=== PATIENT | male | born 1960 | race Caucasian/White ===

== ENCOUNTER 2018-07-21 08:47 | Day surgery (SDC) | payer MEDICARE, OTHER ==
[~2018-07-21] VITALS: Ht 193 cm; Wt 112.8 kg
[~2018-07-21 08:47] MED LIST: AMOCLA875 PO; CRUTCH USE; ESCI10; ESCI20 PO; ESCI5 PO; HYDACE5 PO; HYDACE5325 PO; IRBE150; LANS15EC PO; LANS30EC; LISI5 PO; LORA1 PO; MAGIC MOUTHWASH SS; NAPR500 PO; PREVA; ROSU10TA PO; TRAZ100; [UNRECOGNIZED DRUG - OTHER]
[2018-07-21] MEDS ORDERED: CITA20 PO (09:34)
[2018-07-21] MEDS ORDERED: PIOG30 (09:35)
[2018-07-21] MEDS ORDERED: ATOR40TA (09:35)
[2018-07-21] MEDS ORDERED: GLIM4 (09:35)
--- NOTE | 2018-07-21 09:45 | NUR ---
07/21/18 0945 Star Cortes 1ST AND 2ND IV ATTEMPTS IN LH UNSUCCESSFUL, PARMINDER 3RD IV ATTEMPT IN LFA UNSUCCESSFUL, IVONNE 4TH IV ATTEMPT SUCCESSFUL IN LAC, IVONNE
== END 2018-07-21 11:00 | disposition home or self-care (01) ==
LOC: ORSCSDS 08:47
PROVIDERS: Student in an Organized Health Care Education/Training Program
PROC: 0DB68ZX Excision of Stomach, Via Natural or Artificial Opening Endoscopic, Diagnostic (ICD-10-PCS; principal; 2018-07-21 10:00)
PROC: 0DB98ZX Excision of Duodenum, Via Natural or Artificial Opening Endoscopic, Diagnostic (ICD-10-PCS; principal; 2018-07-21 10:00)
PROC: 0DB58ZX Excision of Esophagus, Via Natural or Artificial Opening Endoscopic, Diagnostic (ICD-10-PCS; principal; 2018-07-21 10:00)
DX: K21.9 Gastro-esophageal reflux disease without esophagitis (principal); K44.9 Diaphragmatic hernia without obstruction or gangrene; K29.80 Duodenitis without bleeding; R10.9 Unspecified abdominal pain; K29.70 Gastritis, unspecified, without bleeding; R12 Heartburn; I10 Essential (primary) hypertension; E11.9 Type 2 diabetes mellitus without complications; F32.9 Major depressive disorder, single episode, unspecified; E66.9 Obesity, unspecified; Z68.30 Body mass index [BMI] 30.0-30.9, adult; Z79.899 Other long term (current) drug therapy
CPT/HCPCS: 82947; 88305; 88342

== ENCOUNTER 2018-11-10 11:57 | Day surgery (SDC) | payer MEDICARE, OTHER ==
[~2018-11-10] VITALS: Ht 193 cm; Wt 110.4 kg
[~2018-11-10 11:57] MED LIST changes: +ATOR40TA; +CITA20 PO; +GLIM4; +PIOG30
== END 2018-11-10 14:35 | disposition home or self-care (01) ==
LOC: ORSCSDS 11:57
PROVIDERS: Surgery
PROC: 0DBM8ZX Excision of Descending Colon, Via Natural or Artificial Opening Endoscopic, Diagnostic (ICD-10-PCS; principal; 2018-11-10 13:30)
PROC: 0DBP8ZX Excision of Rectum, Via Natural or Artificial Opening Endoscopic, Diagnostic (ICD-10-PCS; principal; 2018-11-10 13:30)
DX: Z12.11 Encounter for screening for malignant neoplasm of colon (principal); D12.4 Benign neoplasm of descending colon; K62.1 Rectal polyp; K57.30 Diverticulosis of large intestine without perforation or abscess without bleeding; Z86.010 Personal history of colon polyps; I10 Essential (primary) hypertension; K21.9 Gastro-esophageal reflux disease without esophagitis; Z86.73 Personal history of transient ischemic attack (TIA), and cerebral infarction without residual deficits; F32.9 Major depressive disorder, single episode, unspecified; Z79.899 Other long term (current) drug therapy
CPT/HCPCS: 82947; 88305; J2704; J7120

== ENCOUNTER 2019-07-25 11:56 | Emergency (ER) | payer MEDICARE ==
[~2019-07-25] VITALS: Ht 193 cm; Wt 111.1 kg
[2019-07-25 13:12] LABS: BASOPHILS ABSOLUTE AUTO 0.04 K/mm3 (0.00-0.23); BASOPHILS PERCENT AUTO 1 % (0-2); EOSINOPHILS ABSOLUTE AUTO 0.18 K/mm3 (0.00-0.68); EOSINOPHILS PERCENT AUTO 3 % (0-6); Hematocrit 45.6 % (37.0-53.0); Hemoglobin 15.7 g/dL (13.5-17.5); IMMATURE GRAN ABSOLUTE AUTO 0.02 K/mm3 (0.00-0.10); IMMATURE GRAN PERCENT AUTO 0 % (0-1); LYMPHOCYTES PERCENT AUTO 25 % (21-46); MONOCYTES ABSOLUTE AUTO 0.51 K/mm3 (0.16-1.47); MONOCYTES PERCENT AUTO 9 % (4-13); Mean Corpuscular HGB 31.2 pg (26.0-34.0); Mean Corpuscular HGB Conc 34.4 g/dL (31.5-36.5); Mean Corpuscular Volume 91 fL (80-100); Mean Platelet Volume 10.4 fL (9.1-12.4); NEUTROPHILS ABSOLUTE AUTO 3.73 K/mm3 (1.96-9.15); NEUTROPHILS PERCENT AUTO 62 % (41-73); Platelet Count 250 K/mm3 (150-400); RDW Coefficient Variation 13.3 % (11.7-14.2); RDW Standard Deviation 44.3 fL (35.1-46.3); Red Blood Cell Count 5.04 M/mm3 (4.30-5.90); White Blood Cell Count 5.98 K/mm3 (4.00-11.30)
[2019-07-25 13:26] LABS: Alanine Aminotransfer (ALT/SGP 38 U/L (12-78); Albumin, Blood 4.1 g/dL (3.4-5.0); Albumin/Globulin Ratio 1.3 (0.8-1.8); Alk Phos 65 U/L (50-136); Anion Gap 5 mmol/L (6-16); Aspartate Aminotrans (AST/SGOT 17 U/L (12-37); Bilirubin, Total 0.6 mg/dL (0.1-1.0); Blood Urea Nitrogen 10 mg/dL (8-24); Bun/Creatinine Ratio 13.3 (12.0-20.0); CO2, Blood 24 mmol/L (21-32); Calcium, Blood 8.6 mg/dL (8.5-10.1); Chloride, Blood 109 mmol/L (98-108); Creatinine, Blood 0.75 mg/dL (0.60-1.20); Globulin, Blood 3.1 g/dL (2.2-4.0); Glomerular Filtration Rate >60 (60-); Glucose, Blood 147 mg/dL (70-99); Potassium, Blood 3.8 mmol/L (3.5-5.5); Sodium, Blood 138 mmol/L (136-145); Total Protein, Blood 7.2 g/dL (6.4-8.2)
== END 2019-07-25 14:39 | disposition home or self-care (01) ==
LOC: ER 11:56
PROVIDERS: Physician Assistant
DX: M25.511 Pain in right shoulder (principal); I10 Essential (primary) hypertension; E78.5 Hyperlipidemia, unspecified; E11.9 Type 2 diabetes mellitus without complications; Z88.2 Allergy status to sulfonamides; Z79.899 Other long term (current) drug therapy; Z86.73 Personal history of transient ischemic attack (TIA), and cerebral infarction without residual deficits
CPT/HCPCS: 36415; 73030; 76705; 80053; 83690; 85025; 99284-25

== ENCOUNTER → 2019-08-07 | Outpatient (CLI) | payer MEDICARE | END | disposition home or self-care (01) | LOC: LAB EV 14:41 → LAB SHORT 14:41 | DX: M25.521 Pain in right elbow (principal) | CPT/HCPCS: 84550 ==

== ENCOUNTER 2023-05-30 18:00 | Emergency (ER) | payer MEDICARE ==
[~2023-05-30] VITALS: Ht 193 cm; Wt 108.9 kg
[2023-05-30 18:41] LABS: BASOPHILS ABSOLUTE AUTO 0.05 K/mm3 (0.00-0.23); BASOPHILS PERCENT AUTO 1 % (0-2); EOSINOPHILS ABSOLUTE AUTO 0.12 K/mm3 (0.00-0.68); EOSINOPHILS PERCENT AUTO 2 % (0-6); Hematocrit 44.8 % (37.0-53.0); Hemoglobin 16.2 g/dL (13.5-17.5); IMMATURE GRAN ABSOLUTE AUTO 0.01 K/mm3 (0.00-0.10); IMMATURE GRAN PERCENT AUTO 0 % (0-1); LYMPHOCYTES ABSOLUTE AUTO 2.06 K/mm3 (0.84-5.20); LYMPHOCYTES PERCENT AUTO 27 % (21-46); MONOCYTES ABSOLUTE AUTO 0.66 K/mm3 (0.16-1.47); MONOCYTES PERCENT AUTO 9 % (4-13); Mean Corpuscular HGB 31.9 pg (26.0-34.0); Mean Corpuscular HGB Conc 36.2 g/dL (31.5-36.5); Mean Corpuscular Volume 88 fL (80-100); Mean Platelet Volume 9.7 fL (9.1-12.4); NEUTROPHILS ABSOLUTE AUTO 4.75 K/mm3 (1.96-9.15); NEUTROPHILS PERCENT AUTO 62 % (41-73); Platelet Count 248 K/mm3 (150-400); RDW Coefficient Variation 12.7 % (11.7-14.2); RDW Standard Deviation 41.2 fL (35.1-46.3); Red Blood Cell Count 5.08 M/mm3 (4.30-5.90); White Blood Cell Count 7.65 K/mm3 (4.00-11.30)
[2023-05-30 19:00] LABS: Albumin/Globulin Ratio 1.1 (0.8-1.8); Bilirubin, Total 0.5 mg/dL (0.1-1.0); Bun/Creatinine Ratio 19.1 (12.0-20.0); Calcium, Blood 8.8 mg/dL (8.5-10.1); Creatinine, Blood 0.84 mg/dL (0.60-1.20); Globulin, Blood 3.5 g/dL (2.2-4.0); Potassium, Blood 3.8 mmol/L (3.5-5.5); Total Protein, Blood 7.5 g/dL (6.4-8.2)
[2023-05-30 19:47] LABS: Source, Urine Clean Catch
[2023-05-30 19:50] LABS: Appearance, Urine Clear (Clear); Bilirubin, Urine Neg (Neg); Blood, Urine Neg (Neg); Color, Urine Yellow (P-Yellow); Glucose Qualitative, Urine 1+ (Neg); Ketones, Urine Neg (Neg); Leukocyte Esterase, Urine Neg (Neg); Nitrite, Urine Neg (Neg); Protein, Urine Neg (Neg); Urobilinogen, Urine NORM (Normal)
[2023-05-30 20:58] VITALS: BP 147/62
== END 2023-05-30 21:22 | disposition home or self-care (01) ==
LOC: ER 18:00
PROVIDERS: Emergency Medicine; Physician Assistant
DX: S29.011A Strain of muscle and tendon of front wall of thorax, initial encounter (principal); I10 Essential (primary) hypertension; E11.9 Type 2 diabetes mellitus without complications; E78.5 Hyperlipidemia, unspecified; X58.XXXA Exposure to other specified factors, initial encounter; Z88.2 Allergy status to sulfonamides; Z79.899 Other long term (current) drug therapy; Z79.84 Long term (current) use of oral hypoglycemic drugs
CPT/HCPCS: 74177; 80053; 81003; 83690; 85025; 96361; 96374; 99284-25; A9270; J1885; J7030; Q9967

== ENCOUNTER → 2023-08-22 | Outpatient (CLI) | payer MEDICARE | END | disposition home or self-care (01) | LOC: LAB 14:01 → LAB SHORT 14:01 | DX: K04.7 Periapical abscess without sinus (principal) | CPT/HCPCS: 87070; 87075; 87205 ==

== ENCOUNTER 2024-01-08 03:36 | Inpatient (IN) | payer MEDICARE ==
[~2024-01-08] VITALS: Ht 193 cm; Wt 106.6 kg
[~2024-01-08 03:36] MED LIST changes: -ATOR40TA; +ATOR40TA PO; -GLIM4; +GLIM4 PO; -PIOG30; +PIOG30 PO
[2024-01-08] MEDS ORDERED: Diphth,Pertuss(Acell),Tet Vac 0.5 ML VIAL IM ONE ×2 (04:15→06:45)
[2024-01-08] MEDS ORDERED: Bacitracin Zinc Oint 1GRAM UD Packet TOP ONE (04:15)
[2024-01-08 05:28] LABS: BASOPHILS ABSOLUTE AUTO 0.02 K/mm3 (0.00-0.23); BASOPHILS PERCENT AUTO 0 % (0-2); EOSINOPHILS PERCENT AUTO 0 % (0-6); Hemoglobin 14.3 g/dL (13.5-17.5); IMMATURE GRAN ABSOLUTE AUTO 0.06 K/mm3 (0.00-0.10); IMMATURE GRAN PERCENT AUTO 0 % (0-1); LYMPHOCYTES PERCENT AUTO 5 % (21-46); MONOCYTES ABSOLUTE AUTO 0.69 K/mm3 (0.16-1.47); MONOCYTES PERCENT AUTO 5 % (4-13); Mean Corpuscular HGB 31.4 pg (26.0-34.0); Mean Corpuscular HGB Conc 34.9 g/dL (31.5-36.5); Mean Corpuscular Volume 90 fL (80-100); Mean Platelet Volume 9.9 fL (9.1-12.4); NEUTROPHILS ABSOLUTE AUTO 12.39 K/mm3 (1.96-9.15); NEUTROPHILS PERCENT AUTO 89 % (41-73); Platelet Count 250 K/mm3 (150-400); RDW Coefficient Variation 13.5 % (11.7-14.2); RDW Standard Deviation 44.2 fL (35.1-46.3); Red Blood Cell Count 4.56 M/mm3 (4.30-5.90); White Blood Cell Count 13.86 K/mm3 (4.00-11.30)
[2024-01-08 05:43] LABS: Albumin, Blood 4.1 g/dL (3.4-5.0); Albumin/Globulin Ratio 1.2 (0.8-1.8); Bilirubin, Total 0.5 mg/dL (0.1-1.0); Bun/Creatinine Ratio 15.2 (12.0-20.0); Calcium, Blood 8.2 mg/dL (8.5-10.1); Creatinine, Blood 0.66 mg/dL (0.60-1.20); Globulin, Blood 3.3 g/dL (2.2-4.0); Potassium, Blood 4.2 mmol/L (3.5-5.5); Total Protein, Blood 7.4 g/dL (6.4-8.2)
[2024-01-08] MEDS ORDERED: Acetaminophen 325 MG TABLET PO PRN (05:55)
[2024-01-08] MEDS ORDERED: Ondansetron HCl 2 MG / ML 2ML Vial IV PRN (06:00)
[2024-01-08] MEDS ORDERED: ChlordiazePOXIDE 25 MG Cap PO PRN (06:00)
[2024-01-08] MEDS ORDERED: Ketorolac Tromethamine 15mg Vial IV PRN (06:05)
[2024-01-08] MEDS ORDERED: Lactated Ringer's 1,000 ML IV SCH (07:30)
[2024-01-08] MEDS ORDERED: HydrALAZINE HCl 20 MG / ML 1ML Vial IV PRN (08:00)
[2024-01-08 08:07] LABS: International Normalized Ratio 1.16; Prothrombin Time Results 12.3 Sec (9.7-11.5)
[2024-01-08 08:55] VITALS: BP 149/72
[2024-01-08] MEDS ORDERED: Thiamine HCl 100 MG in NS 50 ML IV SCH (09:00)
[2024-01-08] MEDS ORDERED: Folic Acid 1 MG in NS 50 ML IV SCH (09:00)
[2024-01-08] MEDS ORDERED: Insulin Regular 100 UNIT/ML 10ML Vial SC SCH (12:00)
[2024-01-08] MEDS ORDERED: OxyCODONE HCL 5 MG TAB PO PRN (12:25)
[2024-01-08 15:28] VITALS: BP 137/73
--- NOTE | 2024-01-08 17:01 | NUR ---
shift summary pt arrived from ER this morning, painful with transfer r leg shortned and swollen around hip. pain managed per emar, significantly improved with elevation on pillows. pt tolerating po well at this time. plan is for patient to have further imaging and possible surgery tomorrow. pt aware and agreeable to plan.
[2024-01-08 19:31] VITALS: BP 161/65
[2024-01-08] MEDS ORDERED: OMEP20ER PO (19:55)
[2024-01-08] MEDS ORDERED: Docusate Sodium 100 MG Cap PO SCH (21:00)
[2024-01-09] VITALS (15 sets, daily range): BP systolic 130–164; BP diastolic 65–93
[2024-01-09 04:16] LABS: BASOPHILS ABSOLUTE AUTO 0.02 K/mm3 (0.00-0.23); BASOPHILS PERCENT AUTO 0 % (0-2); EOSINOPHILS ABSOLUTE AUTO 0.07 K/mm3 (0.00-0.68); EOSINOPHILS PERCENT AUTO 1 % (0-6); Hemoglobin 12.5 g/dL (13.5-17.5); IMMATURE GRAN ABSOLUTE AUTO 0.01 K/mm3 (0.00-0.10); IMMATURE GRAN PERCENT AUTO 0 % (0-1); LYMPHOCYTES ABSOLUTE AUTO 1.54 K/mm3 (0.84-5.20); LYMPHOCYTES PERCENT AUTO 23 % (21-46); MONOCYTES ABSOLUTE AUTO 0.99 K/mm3 (0.16-1.47); MONOCYTES PERCENT AUTO 15 % (4-13); Mean Corpuscular HGB 31.9 pg (26.0-34.0); Mean Corpuscular HGB Conc 35.7 g/dL (31.5-36.5); Mean Corpuscular Volume 89 fL (80-100); Mean Platelet Volume 9.4 fL (9.1-12.4); NEUTROPHILS ABSOLUTE AUTO 4.21 K/mm3 (1.96-9.15); NEUTROPHILS PERCENT AUTO 62 % (41-73); Platelet Count 169 K/mm3 (150-400); RDW Coefficient Variation 13.4 % (11.7-14.2); Red Blood Cell Count 3.92 M/mm3 (4.30-5.90); White Blood Cell Count 6.84 K/mm3 (4.00-11.30)
--- NOTE | 2024-01-09 04:23 | NUR ---
SHIFT SUMMARY PT IS A/OX4, IND W/ URINAL IN ROOM. BEDREST. R LEG ELEVATED ON PILLOW. PT MEDICATED FOR PAIN W/ TOLERABLE RESULTS. VSS. IV FLUIDS RUNNING PER EMAR. USING CALL LIGHT APPROPRIATELY. PT HAS R SIDED WEAKNESS AT BASELINE. PEDAL PULSE PALPABLE IN R FOOT, CAP REFILL <3 SECS. CALL LIGHT IN REACH.
[2024-01-09 04:50] LABS: Albumin, Blood 3.3 g/dL (3.4-5.0); Albumin/Globulin Ratio 1.1 (0.8-1.8); Bilirubin, Total 1.1 mg/dL (0.1-1.0); Bun/Creatinine Ratio 15.5 (12.0-20.0); Calcium, Blood 8.1 mg/dL (8.5-10.1); Creatinine, Blood 0.77 mg/dL (0.60-1.20); Globulin, Blood 2.9 g/dL (2.2-4.0); Magnesium, Blood 2.2 mg/dL (1.6-2.4); Potassium, Blood 3.6 mmol/L (3.5-5.5); Thyroid Stimulating Hormone 1.6 uIU/mL (0.360-4.800); Total Protein, Blood 6.2 g/dL (6.4-8.2)
[2024-01-09] MEDS ORDERED: Lactated Ringer's 1,000 ML IV ONE (13:10)
--- NOTE | 2024-01-09 13:41 | NUR ---
PT ARRIVES TO PACU VIA BED FOR PREOP CARE. PLEASANT & JOKING. SURGICAL PACK COMPLETE. SURGICAL HAT/PAS SLEEVE TO LLE/BP CUFF IN PLACE. AFEBRILE/VSS. LR AT TKO INFUSING. NO COMPLAINTS.
[2024-01-09] MEDS ORDERED: Tranexamic Acid 100 ML IV SCH (13:50)
[2024-01-09] MEDS ORDERED: CeFAZolin Sodium 2,000 MG in NS 100 ML IV SCH ×2 (13:50→22:00)
[2024-01-09] MEDS ORDERED: Bupivacaine 0.5% HCl 5 MG/ML 30MLVIAL ONE (13:53)
[2024-01-09] MEDS ORDERED: propofoL 20 ML IV ONE (14:01)
[2024-01-09] MEDS ORDERED: FentaNYL Citrate 50 MCG/ML 2 ML Injection ONE (14:01)
[2024-01-09] MEDS ORDERED: Phenylephrine HCl 100 MCG/ML-NS 10MLSYR (1MG/10ML) ONE (14:02)
[2024-01-09] MEDS ORDERED: Dexamethasone Sod Phos 10 MG/ML 1ML VIAL ONE (14:02)
[2024-01-09] MEDS ORDERED: Sugammadex Sodium 200 MG/2ML SDV (100 MG/ML) ONE (14:02)
[2024-01-09] MEDS ORDERED: Rocuronium Bromide 10 MG/ML 5ML Injection IV ONE (14:02)
[2024-01-09] MEDS ORDERED: Ondansetron HCl 2 MG / ML 2ML Vial ONE (14:02)
--- NOTE | 2024-01-09 14:17 | NUR ---
PT TO OR 4 VIA BED IN STABLE CONDITION AT 1415.
[2024-01-09] MEDS ORDERED: Bisacodyl 10 MG Supp PR PRN (17:00)
[2024-01-09] MEDS ORDERED: NS 1,000 ML IV SCH (17:00)
[2024-01-09] MEDS ORDERED: Magnesium Hydroxide Conc 10 ML UDC PO PRN (17:00)
[2024-01-09] MEDS ORDERED: Calcium Carbonate 1,250 MG TABLET PO SCH (17:00)
--- NOTE | 2024-01-09 17:57 | NUR ---
SHIFT SUMMARY PT S/P R HIP GAMMA NAILING. AQUACEL DRESSING TO R HIP CDI. PT IS SLIGHTLY SLEEP POST SURGERY BUT A/O X4 AND RESPONSIVE. PT REPORTS SOME BACK AND KNEE PAIN. TREATED PER EMR. HE HAS R SIDE FLACCIDITY DUE TO A PREVIOUS CVA. HE IS A DAILY DRINKER BUT CIWA HAS BEEN NEGATIVE SO FAR. VSS.
[2024-01-09] MEDS ORDERED: Docusate Sodium 100 MG Cap PO SCH (21:00)
--- NOTE | 2024-01-10 04:19 | NUR ---
SHIFT SUMMARY PATIENT SLEPT WELL. DID NOT HAVE MUCH PAIN IN HIP TONIGHT. SCDS STARTED, HE DID NOT COMPLAIN.NO SIGNS OF ETOH WITHDRAWAL. CBG CHANGED TO AC/HS INSTEAD OF Q6 SINCE HE IS EATING.
[2024-01-10 04:41] LABS: BASOPHILS ABSOLUTE AUTO 0.01 K/mm3 (0.00-0.23); BASOPHILS PERCENT AUTO 0 % (0-2); EOSINOPHILS ABSOLUTE AUTO 0.02 K/mm3 (0.00-0.68); EOSINOPHILS PERCENT AUTO 0 % (0-6); Hematocrit 34.2 % (37.0-53.0); Hemoglobin 12.1 g/dL (13.5-17.5); IMMATURE GRAN ABSOLUTE AUTO 0.02 K/mm3 (0.00-0.10); IMMATURE GRAN PERCENT AUTO 0 % (0-1); LYMPHOCYTES ABSOLUTE AUTO 0.96 K/mm3 (0.84-5.20); LYMPHOCYTES PERCENT AUTO 11 % (21-46); MONOCYTES ABSOLUTE AUTO 1.11 K/mm3 (0.16-1.47); MONOCYTES PERCENT AUTO 13 % (4-13); Mean Corpuscular HGB Conc 35.4 g/dL (31.5-36.5); Mean Corpuscular Volume 91 fL (80-100); Mean Platelet Volume 9.7 fL (9.1-12.4); NEUTROPHILS ABSOLUTE AUTO 6.55 K/mm3 (1.96-9.15); NEUTROPHILS PERCENT AUTO 76 % (41-73); Platelet Count 192 K/mm3 (150-400); RDW Coefficient Variation 13.1 % (11.7-14.2); RDW Standard Deviation 43.2 fL (35.1-46.3); Red Blood Cell Count 3.78 M/mm3 (4.30-5.90); White Blood Cell Count 8.67 K/mm3 (4.00-11.30)
[2024-01-10 06:11] VITALS: BP 135/67
[2024-01-10 07:13] VITALS: BP 145/62
[2024-01-10] MEDS ORDERED: Insulin Regular 100 UNIT/ML 10ML Vial SC SCH (07:30)
[2024-01-10] MEDS ORDERED: NS 250 ML IV PRN (09:00)
[2024-01-10] MEDS ORDERED: Cholecalciferol 1000 Unit Tablet (=25MCG) PO SCH (09:00)
[2024-01-10] MEDS ORDERED: Enoxaparin 40 MG/0.4 ML SYR SC SCH (09:00)
[2024-01-10 14:08] VITALS: BP 125/64
[2024-01-10 19:10] VITALS: BP 131/65
--- NOTE | 2024-01-10 19:28 | NUR ---
SHIFT SUMMARY PT IS POD#1 FROM R HIP PINNING. PAIN MANAGED WITH OXY AND TYLENOL. PT IS A 2 PERSON ASSIST FOR TRANSFERS. PT TOLERATING PO. PT USES CALL LIGHT APPROPRIATELY. CIWA SCORE 0.
[2024-01-10] MEDS ORDERED: Atorvastatin 40 MG Tab PO SCH (21:00)
[2024-01-11] MEDS ORDERED: Omeprazole 20 MG CapCR PO SCH ×2 (03:01→06:00)
[2024-01-11 03:03] VITALS: BP 133/68
[2024-01-11 07:08] VITALS: BP 132/70
--- NOTE | 2024-01-11 07:22 | NUR ---
SUMMARY ASSUMED CARE OF PT THIS SHIFT.PT WITH NO DISTRESS NOTED.MED FOR PAIN THIS AM PER ANESTHESIA ATTENDING AND PT SLEEPING THIS AM.
[2024-01-11] MEDS ORDERED: Citalopram Hydrobromide 20 MG Tab PO SCH (09:00)
[2024-01-11] MEDS ORDERED: Lisinopril 5 MG Tab PO SCH (09:00)
[2024-01-11] MEDS ORDERED: Bupivacaine 0.5% HCl 5 MG/ML 30MLVIAL ONE (12:39)
[2024-01-11 13:51] VITALS: BP 116/64
--- NOTE | 2024-01-11 14:28 | NUR ---
REPORT ATTEMPTED TO CALL RAYNA () TO GIVE REPORT ON PT. CALLED AT APPROX 1350 TO GIVE REPORT, PLACED THIS RN ON HOLD FOR APPROX 15 MINS THEN HUNG-UP THE CALL. THIS RN THEN CALLED BACK AND WAS AGAIN PLACED ON HOLD, THIS TIME FOR APPROX 10 MINS BEFORE HANGING UP THE PHONE. HAS NOT CALLED BACK TO RECEIVE REPORT AT THIS TIME.
--- NOTE | 2024-01-11 14:40 | NUR ---
DISCHARGE SUMMARY POD 2 R GAMMA NAILING. A&O x4. VSS. TOLERATING ORALS. AQUACEL DRESSING C/D/I. IV REMOVED. VOIDING USING URINAL, NO BM TODAY. PT NWB ON RLE; AMB USING SHERIDAN WALKER c GB TO STAND/PIVOT c 2 PERSON MOD ASSIST. PT MEDICATED PER EMAR FOR PAIN, REPORTS TOLERABLE. D/C'd VIA TRANSPORT SERVICE VIA WHEELCHAIR. ALL PERSONAL BELONGINGS c PATIENT. NO STATED QUESTIONS UPON DISCHARGE.
--- NOTE | 2024-01-11 15:11 | NUR ---
REPORT RAYNA Waldron) CALLED TRANSFUSION AIDE TO RECEIVE REPORT @ 0340. REPORT GIVEN TO RN @
== END 2024-01-11 14:40 | DRG 481 ==
LOC: ER 03:36 → SURS 06:56
PROVIDERS: Emergency Medicine; Orthopaedic Surgery; ADMIT Student in an Organized Health Care Education/Training Program
PROC: 0QS606Z Reposition Right Upper Femur with Intramedullary Internal Fixation Device, Open Approach (ICD-10-PCS; principal; 2024-01-09 12:00)
DX: S72.141A Displaced intertrochanteric fracture of right femur, initial encounter for closed fracture (principal); E87.1 Hypo-osmolality and hyponatremia; I69.351 Hemiplegia and hemiparesis following cerebral infarction affecting right dominant side; F10.20 Alcohol dependence, uncomplicated; E11.9 Type 2 diabetes mellitus without complications; E78.5 Hyperlipidemia, unspecified; I11.0 Hypertensive heart disease with heart failure; K21.9 Gastro-esophageal reflux disease without esophagitis; F10.229 Alcohol dependence with intoxication, unspecified; W18.30XA Fall on same level, unspecified, initial encounter
CPT/HCPCS: 36415; 51702; 70450; 72125; 73502; 73552; 73562-RT; 80053; 82947; 83036; 83735; 83930; 84443; 85025; 85610; 85730; 86850; 86900; 86901; 90715; 93005; 93010; 96374; 97110; 97162; 97166; 97530; 97535; 99285-25; A9270; C1713; J0690; J1100; J1650; J1815; J1885; J2371; J2405; J2704; J3010; J3411; J7050; J7120